=== PATIENT | female | born 1965 ===

== ENCOUNTER 2021-09-17 10:15 | Inpatient (IN) | payer OTHER ==
[~2021-09-17] VITALS: Ht 154.9 cm; Wt 73.5 kg
[2021-09-17] MEDS ORDERED: EZETIMIBE10 MG PO (13:19)
[2021-09-17] MEDS ORDERED: LOTENSIN40 MG PO (13:19)
== END 2021-09-24 10:35 | disposition home or self-care (01) | DRG 743 ==
LOC: SURH 09-22 10:15 → O/R 09-22 11:29 → OB/GYN 09-22 15:23
PROVIDERS: ADMIT Obstetrics & Gynecology; ATTEND Obstetrics & Gynecology
PROC: 0UB10ZZ Excision of Left Ovary, Open Approach (ICD-10-PCS; principal; 2021-09-22 11:15)
DX: D27.1 Benign neoplasm of left ovary (principal); Z20.822 Contact with and (suspected) exposure to COVID-19